=== PATIENT | female | born 1955 | race Caucasian/White ===

== ENCOUNTER → 2023-05-14 | Outpatient (CLI) | payer MEDICARE | LOC: M CARPUL 08:27 | PROVIDERS: ATTEND Internal Medicine Critical Care Medicine | DX: R06.00 Dyspnea, unspecified (principal) ==

== ENCOUNTER → 2024-02-23 | Outpatient (CLI) | payer MEDICARE | LOC: M RAD 09:19 | PROVIDERS: ATTEND Internal Medicine Critical Care Medicine | DX: Z12.2 Encounter for screening for malignant neoplasm of respiratory organs (principal); Z87.891 Personal history of nicotine dependence; J43.9 Emphysema, unspecified; I70.0 Atherosclerosis of aorta; K44.9 Diaphragmatic hernia without obstruction or gangrene ==

== ENCOUNTER → 2025-05-29 | Outpatient (CLI) | payer MEDICARE | LOC: M PLAIMG 09:20 | PROVIDERS: ATTEND Internal Medicine Critical Care Medicine | DX: R06.00 Dyspnea, unspecified (principal) ==

== ENCOUNTER → 2025-07-19 | Outpatient (CLI) | payer MEDICARE ==
[~2025-07-19] MED LIST: LIDOCAINE 1% MDV 20 ML VIAL IM ONE; LIDOCAINE 1% MDV 20 ML VIAL SC ONE; NS (Normal Saline) 0.9% 1,000 ML IV SCH
[2025-07-19 10:15] VITALS: TEMP 97.7
[2025-07-19] MEDS: MIDAZOLAM INJ 2 MG/2 ML VIAL IV PRN (10:55)
[2025-07-19 11:25] VITALS: BP 132/69; O2SAT 97
== END ==
LOC: M IRPRO 10:06
PROVIDERS: ATTEND Internal Medicine Critical Care Medicine
DX: R91.8 Other nonspecific abnormal finding of lung field (principal); Z53.9 Procedure and treatment not carried out, unspecified reason
CPT/HCPCS: 71250; J2250